=== PATIENT | male | born 1980 | race Caucasian/White ===

== ENCOUNTER → 2022-05-05 | Outpatient (CLI) | payer BC ==
--- NOTE | 2022-05-05 14:51 | Diagnostic Imaging Report ---
PROCEDURE: CT sinuses without contrast TECHNIQUE: Multiple contiguous axial images were obtained through the sinuses without the use of intravenous contrast. Coronal and sagittal reformations were then performed. Auto Exposure Controls were utilized during the CT exam to meet ALARA standards for radiation dose reduction. INDICATION: Chronic sinusitis. No prior studies are available for comparison. There is opacification of the left half of the frontal sinus. There is also opacification of multiple left-sided ethmoid air cells. Significant mucosal thickening and near complete opacification left maxillary sinus is noted. The nasal septum is deviated to the right. Right maxillary sinus appears to be clear. The sphenoid is clear. Mastoids are well aerated. Right ostiomeatal complex is patent. Left ostiomeatal complex is opacified. There is questionable abnormal soft tissue identified in the left nasal cavity. IMPRESSION: Abnormal soft tissue density in the left nasal cavity, perhaps nasal polyps. There is significant paranasal sinus disease on the left side involving left half of the frontal sinus as well as left-sided ethmoid air cells and left maxillary sinus. Dictated by: Dictated on workstation # [id number]
== END ==
LOC: RAD FS 12:38
PROVIDERS: ATTEND Otolaryngology Otolaryngology/Facial Plastic Surgery
DX: J32.0 Chronic maxillary sinusitis (principal); J32.2 Chronic ethmoidal sinusitis; J32.1 Chronic frontal sinusitis
CPT/HCPCS: 70486

== ENCOUNTER 2022-05-18 05:30 | Outpatient (CLI) | payer BC ==
[~2022-05-18] VITALS: Ht 160 cm; Wt 86.4 kg
== END 2022-05-18 13:14 | disposition home or self-care (01) ==
LOC: PREOP 05:30
PROVIDERS: ATTEND Otolaryngology Otolaryngology/Facial Plastic Surgery
DX: Z01.818 Encounter for other preprocedural examination (principal)

== ENCOUNTER 2022-05-26 06:55 | Day surgery (SDC) | payer BC ==
[2022-05-26] VITALS (12 sets, daily range): BP systolic 130–149; BP diastolic 81–99
[~2022-05-26] VITALS: Ht 160 cm; Wt 86.4 kg
[2022-05-26] MEDS ORDERED: AMPICILLIN/SULBACTAM INJECTION 1.5 GM in NS (IVPB) 100 ML IV ONE (07:15)
[2022-05-26] MEDS ORDERED: LACTATED RINGERS 1,000 ML IV PRN (07:15)
[2022-05-26] MEDS ORDERED: HYDROCORTISONE 100 MG/2 ML (Solu-CORTEF) VIAL IV ONE (07:15)
[2022-05-26 07:31] LABS: BASOPHILS # (AUTO) 0.1 10^3/uL (0.0-0.1); BASOPHILS % (AUTO) 1 % (0-10); EOSINOPHILS # (AUTO) 0.3 10^3/uL (0.0-0.3); EOSINOPHILS % (AUTO) 3 % (0-10); HEMATOCRIT 48 % (40-54); HEMOGLOBIN 16.9 g/dL (13.3-17.7); LYMPHOCYTES # (AUTO) 5.2 10^3/uL (1.0-4.0); LYMPHOCYTES % (AUTO) 46 % (12-44); MEAN CORPUSCULAR HEMOGLOBIN 32 pg (25-34); MEAN CORPUSCULAR HGB CONC 36 g/dL (32-36); MEAN CORPUSCULAR VOLUME 90 fL (80-99); MEAN PLATELET VOLUME 9.9 fL (9.0-12.2); MONOCYTES # (AUTO) 0.9 10^3/uL (0.0-1.0); MONOCYTES % (AUTO) 8 % (0-12); NEUTROPHILS # (AUTO) 4.9 10^3/uL (1.8-7.8); NEUTROPHILS % (AUTO) 42 % (42-75); PLATELET COUNT 225 10^3/uL (130-400); WHITE BLOOD COUNT 11.5 10^3/uL (4.3-11.0)
[2022-05-26] MEDS ORDERED: COCAINE HCL 4% 2 ML SYR ONE (07:34)
[2022-05-26] MEDS ORDERED: BSS 15 ML ONE (07:34)
[2022-05-26] MEDS ORDERED: PHENYLEPHRINE 0.5% NASAL SPR (NEO-SYNEPHRINE) REG ONE (07:34)
--- NOTE | 2022-05-26 07:34 | Progress Note-Post Operative ---
Post-Operative Progess Note Surgeon (s)/Shipping Processor (s) Surgeon GER VILLEDA MD Shipping Processor n/a Pre-Operative Diagnosis Bilat Chronic Sinusitis, Deviated septum, Bilat hyper of inf Turbs Post-Operative Diagnosis same Post-Op Procedure Note Date of Procedure: May 26, 2022 Name of Procedure Performed: Bialt ESS, Nasal Septoplasty, Bilat REd of Inf Turbs Description & Findings Description and Findings: n/a Anesthesia Type get Estimated Blood Loss minimal Packing none. Specimen(s) collected/removed bilat choric sinus disease, nasal septum GER VILLEDA MD May 26, 2022 07:34
--- NOTE | 2022-05-26 07:34 | Progress Note-Pre Operative ---
Pre-Operative Progress Note Date of Available H&P: May 26, 2022 Date H&P Reviewed: May 26, 2022 Time H&P Reviewed: 07:30 History & Physical: H&P Reviewed, Patient Examed, No changes noted Changes from last HP none Pre-Operative Diagnosis: Bilat Chronic Sinusitis, Deviated septum, Bilat hyper of inf Turbs GER VILLEDA MD May 26, 2022 07:34
[2022-05-26] MEDS ORDERED: ONDANSETRON 4 MG/2 ML (SDV) Z0FRAN ONE ×2 (07:36→07:42)
[2022-05-26] MEDS ORDERED: LIDOCAINE PF 2% 5 ML (XYLOCAINE) VIAL ONE ×2 (07:36→07:42)
[2022-05-26] MEDS ORDERED: fentaNYL INJ 100 MCG/2 ML AMP ONE ×2 (07:36→07:42)
[2022-05-26] MEDS ORDERED: proPOfol 200 MG/20 ML (DIPRIVAN) VIAL IV ONE ×2 (07:36→07:42)
[2022-05-26] MEDS ORDERED: MIDAZOLAM 2 MG/2 ML (VERSED) VIAL ONE ×2 (07:36→07:43)
[2022-05-26] MEDS ORDERED: ROCURONIUM 10 MG/ML 5 ML SYRINGE IV ONE ×2 (07:36→07:42)
[2022-05-26] MEDS ORDERED: LIDOCAINE/EPI 2% 1:200,00 (XYLOCAINE) 10 ML VIAL ONE ×2 (07:40→08:38)
[2022-05-26] MEDS ORDERED: GLYCOPYRROLATE 0.2 MG/ML (ROBINUL) 2 ML VIAL ONE ×2 (07:42→09:38)
[2022-05-26] MEDS ORDERED: NEOSTIGMINE (BLOXIVERZ ) 1 MG/1ML 10 ML VIAL ONE ×2 (07:43→09:38)
[2022-05-26] MEDS ORDERED: D5 1/2 NS W/KCL 20 MEQ/L 1,000 ML IV SCH (07:45)
[2022-05-26] MEDS ORDERED: predniSONE 20 MG TAB PO NR (07:45)
[2022-05-26] MEDS ORDERED: HYDROcodone/APAP 5 MG/325 MG (LORTAB) TAB PO PRN (07:45)
[2022-05-26] MEDS ORDERED: PROMETHAZINE INJ 25 MG/ML (PHENERGAN) AMP IVP PRN (07:45)
[2022-05-26 08:00] LABS: POTASSIUM 3.8 MMOL/L (3.6-5.0)
[2022-05-26 08:01] LABS: CALCIUM 9.1 MG/DL (8.5-10.1)
[2022-05-26 08:06] LABS: CREATININE SERUM 1.15 MG/DL (0.60-1.30)
[2022-05-26] MEDS ORDERED: SEVOFLURANE (ULTANE) 15 ML INHAL SOLN ONE (09:21)
--- NOTE | 2022-05-26 09:38 | Anesthesia-General Post-Op ---
General Patient Condition Mental Status/LOC: Same as Preop Cardiovascular: Satisfactory Nausea/Vomiting: Absent Respiratory: Satisfactory Pain: Controlled Complications: Absent Post Op Complications Complications None Follow Up Care/Instructions Patient Instructions None needed. Anesthesia/Patient Condition Patient Condition Patient is doing well, no complaints, stable vital signs, no apparent adverse anesthesia problems. No complications reported per nursing. ROMEO MENA CRNA May 26, 2022 09:38
[2022-05-26] MEDS ORDERED: fentaNYL INJ 100 MCG/2 ML AMP IVP ONE (09:45)
[2022-05-26] MEDS ORDERED: ONDANSETRON 4 MG/2 ML (SDV) Z0FRAN IVP PRN (09:45)
[2022-05-26] MEDS ORDERED: morphine INJ 10 MG/ML 1ML (SYR OR VIAL) IVP ONE (09:45)
[2022-05-26] MEDS ORDERED: morphine INJ 10 MG/ML 1ML (SYR OR VIAL) ONE (09:56)
[2022-05-26] MEDS ORDERED: PRD20T PO ×2 (11:17→11:20)
[2022-05-26] MEDS ORDERED: ACHD5005 PO (11:20)
[2022-05-26] MEDS ORDERED: AMOX-355 PO (11:20)
== END 2022-05-26 11:48 | disposition home or self-care (01) ==
LOC: SDC 06:55
PROVIDERS: ATTEND Otolaryngology Otolaryngology/Facial Plastic Surgery
DX: J32.8 Other chronic sinusitis (principal); J34.2 Deviated nasal septum; J34.89 Other specified disorders of nose and nasal sinuses; J34.3 Hypertrophy of nasal turbinates
CPT/HCPCS: 36415; 80048; 85025; 87081